=== PATIENT | female | born 1950 | race Caucasian/White ===

== ENCOUNTER → 2017-08-26 | Outpatient (CLI) | payer MEDICARE, OTHER, SELFPAY | PROVIDERS: PCP Family Medicine; Visit Provider Family Medicine | DX: Z13.820 Encounter for screening for osteoporosis (principal); Z78.0 Asymptomatic menopausal state; Z12.31 Encounter for screening mammogram for malignant neoplasm of breast | CPT/HCPCS: 77067; 77080; G0202 ==

== ENCOUNTER → 2017-11-19 13:18 | Outpatient (POV) | payer MEDICARE, OTHER, SELFPAY | DX: Z00.00 Encounter for general adult medical examination without abnormal findings (principal) ==

== ENCOUNTER → 2018-09-02 09:04 | Outpatient (CLI) | payer MEDICARE, OTHER, SELFPAY ==
--- NOTE | 2018-09-02 09:12 | MM_ITS ---
MM Dig screening mamm BI w/CAD CAD Screening COMPARISON: Digital mammograms with CAD 08/26/2017 and 03/15/2015 INDICATION: There is a history of breast cancer in patient's maternal aunt and paternal cousin TECHNIQUE: Standard CC and MLO images were obtained. R2 CAD reviewed. FINDINGS: Scattered fiber glandular densities are seen throughout both breasts there are stable tiny nodular densities in the right breast. There are couple of benign-appearing calcifications in each breast. There is no suspicious lesion and no suspicious microcalcifications. IMPRESSION: Fibrofatty parenchyma with no suspicious lesion seen BI-RADS Category: 2 Benign Finding(s) RECOMMENDED FOLLOW-UP: 1YR - 1 YEAR FOLLOW-UP (A letter has been sent to the patient regarding results of the study.)
== END ==
PROVIDERS: PCP Family Medicine; Visit Provider Family Medicine
DX: Z12.31 Encounter for screening mammogram for malignant neoplasm of breast (principal)
CPT/HCPCS: 77067

== ENCOUNTER → 2019-07-21 14:56 | Outpatient (POV) | payer MEDICARE, OTHER, SELFPAY | DX: Z00.00 Encounter for general adult medical examination without abnormal findings (principal) ==

== ENCOUNTER → 2020-02-02 09:26 | Outpatient (CLI) | payer MEDICARE, OTHER, SELFPAY ==
--- NOTE | 2020-02-02 09:38 | MM_ITS ---
PROCEDURE: MM DIG SCREENING MAMM BI W/CAD DIGITAL BREAST TOMOSYNTHESIS INCLUDED Patient Age:69Y CLINICAL INDICATION: SCREENING 69-year-old no new complaints no hormones Family history: Maternal aunt with breast cancer age 50, narrow times paternal cousin COMPARISON: DMDXUAVR DIG MAMM-DX UNIL ADD VIEWS-RT from 11/19/2012 [facility] DIG MAMM-SCREEN GABRIEL from 03/15/2015 DMSB DIG MAMM-SCREEN GABRIEL W/CAD from 08/26/2017 [facility] MM Dig screening mamm BI w/CAD from 09/02/2018 TECHNIQUE: Standard CC and MLO images were obtained. R2 CAD reviewed. Bilateral digital breast tomosynthesis included. FINDINGS: [id number] residual fibroglandular elements bilaterally but no dominant or suspicious new mass. No suspicious calcifications.. Right breast: No new areas of concern. Stable small benign intramammary lymph nodes towards upper-outer quadrant right breast again noted. On CC view the minimal nodularity seen in lateral breast has regressed slightly Left breast. cluster of small dense calcifications has become apparent since 2018 exam and highlighted by CAD.. Nonspecific-and more likely benign but would benefit from spot views to further evaluate.-. Suggest magnification CC and 90 degree spot views. IMPRESSION: Left breast: Small cluster of calcifications, most likely benign but warrants additional magnification spot views Right breast stable. Follow-up 1 year on right BI-RAD Category: 0 Need Additional Imaging Evaluation low T FOLLOW-UP: IMM Immediate Follow-up Recommended Left breast magnification spot views (A letter has been sent to the patient regarding results of the study.) Dictated by: Adams Mendez MD 02/08/2020 15:54 Electronically signed by Adams Mendez MD in [place] 02/08/2020 15:54
== END ==
PROVIDERS: Visit Provider Nurse Practitioner Family
DX: Z12.31 Encounter for screening mammogram for malignant neoplasm of breast (principal)
CPT/HCPCS: 77063; 77067

== ENCOUNTER → 2020-02-07 10:14 | Outpatient (CLI) | payer MEDICARE, OTHER, SELFPAY ==
--- NOTE | 2020-02-07 10:17 | XR_ITS ---
PROCEDURE: XR DEXA AXIAL SKELETON CLINICAL HISTORY: OSTEOPORSIS COMPARISON: No exams were available for comparison FINDINGS: Right femoral neck density is 0.687 grams/centimeters sq with a T-score -1.5. Left femur density is 0.907 grams/centimeters sq with a T-score of -0.3. L1-L4 density is 1.105 grams/centimeters sq with a T-score of 0.5. IMPRESSION: Osteopenia with moderate fracture risk. Treatment advised. Suggest follow-up exam in 2 years Dictated by: Yevgeniy Preciado MD 02/07/2020 10:48 Electronically signed by Yevgeniy Preciado MD in [place] 02/07/2020 10:48
== END ==
PROVIDERS: Visit Provider Nurse Practitioner Family
DX: M81.0 Age-related osteoporosis without current pathological fracture (principal)
CPT/HCPCS: 77080

== ENCOUNTER → 2020-02-14 13:47 | Outpatient (CLI) | payer MEDICARE, OTHER, SELFPAY ==
--- NOTE | 2020-02-14 13:51 | MM_ITS ---
PROCEDURE: MM DIG MAMM DX UNILAT LT CAD Digital Breast Tomosynthesis Included CLINICAL INDICATION: ABN MAMM Follow-up calcifications COMPARISON: DMSB DIG MAMM-SCREEN GABRIEL W/CAD from 08/26/2017 [facility] MM Dig screening mamm BI w/CAD from 09/02/2018 MM DIG SCREENING MAMM BI W/CAD from 02/02/2020 TECHNIQUE: Mag views left breast FINDINGS: There is a cluster of indeterminate calcifications in the medial aspect of the left breast. These have increased in number and are indeterminate. Biopsy is suggested. Stereotactic biopsy recommended IMPRESSION: BI-RAD Category: 4 Suspicious Abnormality - Biopsy Considered FOLLOW-UP: BIO Biopsy Recommended (A letter has been sent to the patient regarding results of the study.) Dictated by: Yevgeniy Preciado MD 02/14/2020 14:45 Electronically signed by Yevgeniy Preciado MD in [place] 02/14/2020 14:45
== END ==
PROVIDERS: PCP Nurse Practitioner Family; Visit Provider Nurse Practitioner Family
DX: R92.8 Other abnormal and inconclusive findings on diagnostic imaging of breast (principal)
CPT/HCPCS: 77061; 77065; G0279

== ENCOUNTER → 2020-03-16 09:30 | Outpatient (CLI) | payer MEDICARE, OTHER, SELFPAY ==
--- NOTE | 2020-03-16 09:37 | MM_ITS ---
PROCEDURE: MM STEREOTACTIC LOC LT CLINICAL INDICATION: Suspicious calcifications left breast, abnormal mammogram TECHNIQUE: Informed consent was obtained. Time-out procedure performed. The patient was placed on the stereotactic table and the abnormality was localized in the most appropriate projection. The breast was prepped in the routine manner, with sterile prep and the overlying skin anesthetized. A 3 to 4 mm skin incision was performed and the 9 gauge sorus vacuum-assisted core biopsy needle was advanced to the region of the calcification. Pre- and post fire images were obtained. After adequate positioning relative to the calcifications was ensured, multiple biopsies were obtained in the region of the calcifications specifically. The core biopsies obtained were sent for specimen mammography. After the calcifications were indeed identified on the specimen mammogram, the procedure was terminated. The patient tolerated the procedure well without complications. Specimen was sent for pathologic analysis . Routine follow-up phone call to patient is to be performed as well. A tiny titanium nonferromagnetic MicroMark was positioned through the mammotome needle into the biopsy site. Pathology: Focal fibroadenomatoid hyperplasia with calcifications. Proliferative breast disease Negative for atypical hyperplasia or malignancy IMPRESSION: 1. Successful stereotactic vacuum-assisted core biopsy of the left breast calcifications. 2. Successful placement of a titanium metal MicroMark. 3. Pathology shows focal fibroadenomatoid hyperplasia with calcifications and pro live for 8 of breast disease. Negative for atypia or malignancy.. 4. No noted complications. SPECIMEN RADIOGRAPH: The mammographically evident calcifications from the prior study are currently evident within the Michelle dish and within the specimens obtained during mammotome procedure. This is considered an adequate specimen and the procedure was terminated. IMPRESSION: Successful removal of described breast calcifications. Left BREAST MAMMOGRAM: Compared to the prior study, the previously noted calcification have been removed. A small MicroMark clip was inserted into the region of the calcifications. There is evidence of soft tissue changes in the region of the biopsy was soft tissue gas and edema. 5. Adequate placement of the MicroMark clip postbiopsy. 6. Postbiopsy changes within the breast. 7. Recommend follow-up mammogram in 6 months per routine post biopsy protocol Dictated by: Yevgeniy Preciado MD 03/27/2020 08:47 Electronically signed by Yevgeniy Preciado MD in [place] 03/27/2020 08:47
== END ==
PROVIDERS: PCP Nurse Practitioner Family; Visit Provider Nurse Practitioner Family
DX: R92.8 Other abnormal and inconclusive findings on diagnostic imaging of breast (principal)
CPT/HCPCS: 19081; 76098; 77065; 88305

== ENCOUNTER → 2020-04-26 13:42 | Outpatient (POV) | payer MEDICARE, OTHER, SELFPAY | DX: Z00.00 Encounter for general adult medical examination without abnormal findings (principal) ==

== ENCOUNTER → 2020-07-26 12:43 | Outpatient (CLI) | payer MEDICARE, OTHER, SELFPAY ==
--- NOTE | 2020-07-26 12:55 | CA_ITS ---
APPROVED REPORT Straightedge Man: Sintia Hayden RVT Laterality: Bilateral Study Quality: Good Indications: Dizziness and Vertigo Risk Factors Hypertension: Hyperlipidemia Diabetes Doppler Spectral Velocity Analysis ECA (R) 117.40/8.60 cm/s dICA (L) 87.40/31.70 cm/s Sarah (L) 81.40/23.10 cm/s dICA (R) 72.80/25.70 cm/s pICA (L) 66.00/18.80 cm/s Sarah (R) 81.40/24.00 cm/s pICA (R) 71.10/20.60 cm/s dCCA (L) 65.10/14.60 cm/s pCCA (L) 72.80/12.90 cm/s dCCA (R) 74.50/17.10 cm/s pCCA (R) 71.60/15.00 cm/s Vert (L) 34.70/10.90 cm/s Vert (R) 45.40/12.00 cm/s ICA/CCA 1.34 ICA/CCA 1.09 Findings Study suggests 20-49% stenosis of the right internal cartoid artery. Study suggests 20-49% stenosis of the left internal cartoid artery. Antegrade flow seen bilateral vertebral arteries. Conclusion Study suggests 20-49% stenosis of the right internal cartoid artery. Study suggests 20-49% stenosis of the left internal cartoid artery. Antegrade flow seen bilateral vertebral arteries. Electronically signed by : Yevgeniy Preciado MD 07/26/2020 15:41:39
== END ==
PROVIDERS: PCP Nurse Practitioner Family; Visit Provider Nurse Practitioner Family
DX: R42 Dizziness and giddiness (principal)
CPT/HCPCS: 93880

== ENCOUNTER 2020-10-28 16:08 | Emergency (ER) | payer MEDICARE, OTHER, SELFPAY ==
[2020-10-28 16:20] VITALS: BP 123/76; PULSE 84; RESP 18; TEMP 36.9; O2SAT 97; BMI 27.9
--- NOTE | 2020-10-28 16:36 | XR_ITS ---
PROCEDURE: XR FOOT LT MIN 3V Referring Doctor: Pat Morse Patient Age:70Y CLINICAL INDICATION: PAIN Left foot pain COMPARISON: No exams were available for comparison TECHNIQUE: Left foot nonweightbearing 3 View AP, Oblique, Lateral FINDINGS: Left foot no acute fracture nor r dislocation. No lytic or blastic change. Adequate mineralization . There are arthritic changes suggested at the 1st 2nd and 3rd tarsal-metatarsal joints but of these arthritic changes most evident at 2nd and 3rd tarsal-metatarsal joint with sclerosis and mild narrowing most evident at these joints. Less pronounced arthritic changes also at the 4th and 5th tarsal-metatarsal joint.. Metatarsals intact. No fractures no periosteal reaction.. Navicular and talus unremarkable. . MTP joints are intact. PIP joints intact. Mild narrowing scant arthritic changes at DIP joint of 2nd toe At calcaneus note nearly 9 mm length fairly moderate volume plantar calcaneal spur. Only minimal spurring at the insertion Achilles tendon measuring 6 mm late IMPRESSION: No acute findings. No acute fracture Arthritic changes at tarsal-metatarsal joints evident. Most evident sclerosis and arthritic changes at 1st 2nd and 3rd tarsal-metatarsal joints. Less evident 4th and 5th. . Moderate 9 mm plantar calcaneal spur Dictated by: Adams Mendez MD 10/28/2020 22:12 Adams Mendez MD in [place] 10/28/2020 22:12
--- NOTE | 2020-10-28 17:03 | HMH.EDUTC ---
[facility] [place] Disposition Clinical Impression: Foot pain Qualifiers: Laterality: left Qualified Code(s): M79.672 - Pain in left foot Disposition: Home, Self-Care Condition on Discharge: Good Instructions: How To Perform RICE (Rest, Ice, Compress, Elevate), DI for Foot Pain Additional Instructions: *weight bearing as tolerated use cane or walker to ambulate *RICE, Rest the extremity, Ice 15-20 minutes 3-4 times daily, Compress- wear the anirudh wrap as discussed as much as possible to help reduce swelling and pain, Elevate the extremity when at rest *Anirudh wrap/post op shoe is for support and help control swelling, use it except in the shower. Be sure that is not to tight but not to loose either *Elevate when resting *Ibuprofen every 6-8 hours as needed for pain an inflammation. if your doctor has told you that you can take it If need something more can take Tylenol in between doses of Ibuprofen to help Immediately follow up with your family doctor for new or worsening of symptoms, or no noticeable improvement over the next 3-5 days You may call back to the [facility] tomorrow for the official reading of your xray Return if needed Make sure to follow up with your Family Doctor if you continue to have fluctuations of your blood pressure and if no improvement for referral to Podiatry if needed Straight to ER if any life threatening symptoms Referrals: Diane Russell APRN [Primary Care Provider] - As needed Sarah Hoffman DPM [Staff Physician] - Time of Disposition: 17:10 Medical Decision Making - Juma Inquiry Pt receiving controlled substance: No Juma was queried for this patient: No Vital Signs: 10/28/20 16:20 10/28/20 17:16 Temperature 98.4 F 98.4 F Temperature Source Oral Pulse Rate 84 Pulse Rate [Right Brachial] 84 Respiratory Rate 18 18 Blood Pressure 123/76 Blood Pressure [Right Arm] 123/76 Blood Pressure Mean [Right Arm] 91 Blood Pressure Source [Right Arm] Automatic Cuff Blood Pressure Position [Right Arm] Sitting 02 Sat by Pulse Oximetry 97 Oxygen Delivery Method Room Air Orders (Tests/Meds): ORDERS Category Date Time Status XR foot LT min 3V Stat Exams 10/28/20 16:36 Taken - Radiology Data #1 Image(s): Foot/Toes Image Reviewed: Yes I reviewed the patient's radiology image heel spur noted no acute fracture will place in anirudh wrap and post op shoe and have patient follow up with Podiatry [facility] [place] HPI - General Stated complaint: BP high,Left foot swollen Time Seen by Provider: 10/28/20 17:03 Mode of Arrival: Ambulatory Source of Information: Patient Limitations: No Limitations Description of Symptoms (Recalled from Triage Doc. by RN): PATIENT C/O SWOLLEN AND TENDER LEFT FOOT SINCE THIS MORNING. NO KNOWN RECENT INJURY. PATIENT ALSO STATES THAT HER BLOOD PRESSURE WAS ELEVATED THIS MORNING, BUT HAS SINCE GONE DOWN HEENT Symptoms (Recalled from RN notes): No Resp Symptoms (Recalled from RN notes): No Skin Symptoms (Recalled from RN notes): No MS Symptoms (Recalled from RN notes): Yes Functional Status (Recalled from RN notes): WNL - History of Present Illness Provider Complaint: Patient states that she noticed this morning that she was having some pain and swelling in her left foot denies known injury States that she has been using ice on it and it has helped with the swelling States that this morning her blood pressure was elevated due to the pain but has since went down to normal - Related Data Allergies Allergy/AdvReac Type Severity Reaction Status Date / Time No Known Allergies Allergy Verified 10/28/20 16:59 - Worker's Comp Is this a Worker's Comp case?: No [facility] History - Hepatitis A Screen Drug use history?: No High risk sexual behaviors?: No History of sexually transmitted infection?: No Currently employed?: No Childcare worker?: No Do you have indoor plumbing?: Yes Do you have electricity?: Yes Attestation statement:: This patient has been screened for Hepatitis A risk fact
[2020-10-28 17:16] VITALS: BP 123/76; PULSE 84; RESP 18; TEMP 36.9; O2SAT 97
== END 2020-10-28 17:20 | disposition home or self-care (01) ==
PROVIDERS: Emergency Provider Nurse Practitioner; PCP Nurse Practitioner Family
DX: M79.672 Pain in left foot (principal); I10 Essential (primary) hypertension; E11.9 Type 2 diabetes mellitus without complications; Z85.850 Personal history of malignant neoplasm of thyroid
CPT/HCPCS: G0463; 73630; 99202

== ENCOUNTER → 2020-12-04 14:52 | Outpatient (CLI) | payer MEDICARE, OTHER, SELFPAY | PROVIDERS: PCP Nurse Practitioner Family; Visit Provider Nurse Practitioner Family | DX: R92.8 Other abnormal and inconclusive findings on diagnostic imaging of breast (principal) ==

== ENCOUNTER → 2020-12-20 14:33 | Outpatient (POV) | payer MEDICARE, OTHER, SELFPAY | DX: Z00.00 Encounter for general adult medical examination without abnormal findings (principal) ==

== ENCOUNTER → 2021-02-01 12:52 | Outpatient (CLI) | payer MEDICARE, OTHER, SELFPAY ==
--- NOTE | 2021-02-01 12:54 | MM_ITS ---
PROCEDURE: MM DIG MAMM BI DX W/CAD Digital Breast Tomosynthesis Included CLINICAL INDICATION: 6 MONTH F/U COMPARISON: MG DMDXUAVR DIG MAMM-DX UNIL ADD VIEWS-RT from 11/19/2012 MG DMSB DIG MAMM-SCREEN GABRIEL W/CAD from 08/26/2017 [facility] MM Dig screening mamm BI w/CAD from 09/02/2018 MG MM DIG SCREENING MAMM BI W/CAD from 02/02/2020 MG MM DIG MAMM DX UNILAT LT CAD from 02/14/2020 MG MM CLIP PLACEMENT LT from 03/16/2020 MG MM SURGICAL SPECIMEN LT from 03/16/2020 MG MM STEREOTACTIC LOC LT from 03/16/2020 MG from 03/22/2020 MG from 03/27/2020 TECHNIQUE: Standard CC and MLO images and 3D Tomosynthesis was obtained. R2 CAD reviewed. FINDINGS: There is average fibroglandular tissue. There are bilateral benign-appearing nodules. Right breast: Asymmetric density was present in the outer aspect of the right breast at the 9 o'clock region. This area did appear to compress out and may represent fibroglandular tissue having a similar appearance on older exam of 09/02/2018 and 08/24/2019. Benign-appearing calcifications are present as well. Left breast: Biopsy clip is present in the posterior 1/3 of left breast. No recurrence calcifications evident at this region. There is some asymmetry in the left retroareolar region similar to previous exams. Benign-appearing calcifications are present. No malignant appearing mass or malignant-appearing microcalcification is apparent. IMPRESSION: Benign findings BI-RAD Category: 2 Benign Finding FOLLOW-UP: 1 YR 1 Year Follow-up (A letter has been sent to the patient regarding results of the study.) Dictated by: Yevgeniy Preciado MD 02/09/2021 10:53 Yevgeniy Preciado MD in [place] 02/09/2021 10:53
== END ==
PROVIDERS: PCP Nurse Practitioner Family; Visit Provider Nurse Practitioner Family
DX: R92.8 Other abnormal and inconclusive findings on diagnostic imaging of breast (principal)
CPT/HCPCS: 77062; 77066; G0279

== ENCOUNTER → 2021-03-28 12:33 | Outpatient (CLI) | payer MEDICARE, OTHER, SELFPAY ==
--- NOTE | 2021-03-28 12:48 | ECG_ITS ---
APPROVED REPORT Exam: Resting ECG HR:64 bpm ECG Measurements Heart Rate 64 AXES [place] 152 P QRSd 76 QRS -4 QT 402 T 31 QTc 414 Conclusion Normal sinus rhythm Late r wave progression Abnormal ECG Electronically signed by : Lucas Peterson, 03/29/2021 14:29:46
== END ==
PROVIDERS: PCP Nurse Practitioner Family; Visit Provider Nurse Practitioner Family
DX: R06.02 Shortness of breath (principal)
CPT/HCPCS: 93005

== ENCOUNTER → 2021-04-11 14:08 | Outpatient (POV) | payer MEDICARE, OTHER, SELFPAY | DX: Z00.00 Encounter for general adult medical examination without abnormal findings (principal) ==

== ENCOUNTER → 2022-03-29 08:10 | Outpatient (CLI) | payer MEDICARE, OTHER, SELFPAY ==
--- NOTE | 2020-03-29 08:32 | MM_ITS ---
PROCEDURE INFORMATION: Exam: MG Bilateral Screening 3D Mammography Exam date and time: 03/29/2022 8:32 AM Age: 72 years old Clinical indication: Screening examination TECHNIQUE: Imaging protocol: Bilateral Screening tomosynthesis and 2D mammography including computer-aided detection (CAD) when performed. COMPARISON: 1. MG MM DIG MAMM BI DX W/CAD 02/01/2021 1:01 PM 2. MG (BREAST, ) 03/27/2020 11:29 AM FINDINGS: MAMMOGRAPHY: Breast composition: There are scattered areas of fibroglandular density. Mass: None. Architectural distortion: None. Calcifications: No suspicious calcifications. Asymmetric density: None. Skin thickening: None. Axillary adenopathy: None. IMPRESSION: No mammographic evidence of malignancy. Annual screening is recommended unless otherwise clinically indicated. ASSESSMENT: BI-RADS Category 1: Negative Y
--- NOTE | 2022-03-29 08:17 | MM_ITS ---
FINAL REPORT TECHNIQUE: Bone mineral density was calculated of the lumbar spine and hip. CLINICAL HISTORY: post menopausal FINDINGS: DEXA BONE DENSITY AXIAL SKELETON Using L1-4, the bone mineral density of the spine is 1.170 g/cm2, corresponding to T-score of 1.1. Using the left hip, the bone mineral density of the femoral neck is 0.909 g/cm2, corresponding to a T-score of -0.3. NOTE: T-score: Standard deviation compared with peak bone mass of young adult mean. *Following the recommendations of the International Society of Bone densitometry, classification of hip BMD is based on the lower of two T-scores; total hip or femoral neck. IMPRESSION: Normal bone mineral density of the lumbar spine and left hip. Reviewed, Interpreted and Dictated by Philippe Solis III, MD Transcribed by Monie Mcgovern Authenticated and [facility]
== END ==
PROVIDERS: PCP Nurse Practitioner Family; Visit Provider Physician Assistant
DX: Z78.0 Asymptomatic menopausal state (principal); Z12.31 Encounter for screening mammogram for malignant neoplasm of breast
CPT/HCPCS: 77063; 77067; 77080

== ENCOUNTER 2022-12-23 21:45 | Emergency (ER) | payer MEDICARE, OTHER, SELFPAY ==
[2022-12-23 21:47] VITALS: BP 143/110; PULSE 73; RESP 16; TEMP 36.5; O2SAT 99; BMI 25.5
--- NOTE | 2022-12-23 22:20 | CT_ITS ---
PROCEDURE INFORMATION: Exam: CT Cervical Spine Without Contrast Exam date and time: 12/23/2022 10:34 PM Age: 72 years old Clinical indication: Injury or trauma; Fall; Additional info: Fall, head laceration TECHNIQUE: Imaging protocol: Computed tomography of the cervical spine without contrast. Radiation optimization: All CT scans at this facility use at least one of these dose optimization techniques: automated exposure control; mA and/or kV adjustment per patient size (includes targeted exams where dose is matched to clinical indication); or iterative reconstruction. REPORTING DATA: Count of CT and Cardiac NM exams in prior 12 months: This patient has received [address] and 0 known cardiac nuclear medicine studies in the 12 months prior to the current study. COMPARISON: US CA CAROTID DUPLEX BI 26/07/2020 13:00 FINDINGS: Bones/joints: Straightening of the curvature of the cervical spine is likely positional. Degenerative changes at C5-C6 produce up to moderate spinal stenosis. Multilevel degenerative changes of the cervical spine producing multiple levels of mild spinal canal stenosis. Lungs: Lung apices are normal. Thyroid: Thyroid is likely surgically absent. Soft tissues: Unremarkable. IMPRESSION: No acute fracture or malalignment of the cervical spine.
--- NOTE | 2022-12-23 22:20 | CT_ITS ---
PROCEDURE INFORMATION: Exam: CT Head Without Contrast Exam date and time: 12/23/2022 10:34 PM Age: 72 years old Clinical indication: Injury or trauma; Fall; Bleeding/hemorrhage and blunt trauma (contusions or hematomas) and laceration; Consciousness not specified; Without residual foreign body; Head, generalized; Additional info: Fall, head laceration TECHNIQUE: Imaging protocol: Computed tomography of the head without contrast. Radiation optimization: All CT scans at this facility use at least one of these dose optimization techniques: automated exposure control; mA and/or kV adjustment per patient size (includes targeted exams where dose is matched to clinical indication); or iterative reconstruction. REPORTING DATA: Count of CT and Cardiac NM exams in prior 12 months: This patient has received [address] and 0 known cardiac nuclear medicine studies in the 12 months prior to the current study. COMPARISON: US CA CAROTID DUPLEX BI 26/07/2020 13:00 FINDINGS: Brain: Moderate chronic brain volume loss and chronic small vessel ischemic changes. Cerebral ventricles: No ventriculomegaly. Paranasal sinuses: Visualized sinuses are unremarkable. No fluid levels. Mastoid air cells: Visualized mastoid air cells are well aerated. Bones/joints: Unremarkable. No acute fracture. Soft tissues: Small laceration overlies the left frontal bone. IMPRESSION: No acute intracranial findings.
[2022-12-23 23:32] VITALS: BP 167/91; PULSE 70; RESP 16; TEMP 36.5; O2SAT 99
--- NOTE | 2022-12-23 23:32 | HMH.EDWNDL ---
Discharge Plan Disposition Patient Disposition: Home, Self-Care Chief Complaint: Wound/Laceration Referrals Follow up/Referrals: Diane Russell APRN [Primary Care Provider] - See instructions Clinical Impressions Clinical Impression: Contusion of head, Laceration Instructions Patient Instructions: DI for Laceration Repair Discharge ED Provider: Campbell (ED),Chavez Arreguin Wound/Laceration HPI General Chief Complaint: Wound/Laceration Stated Complaint: AO 12/23 Laceration on Forehead and hit head Time Seen by Provider: 12/23/22 22:35 Mode of Arrival: Ambulatory Source of Information: Patient, Relative and Medical Record Limitations: No Limitations Description of Symptoms (Recalled from ER Triage Doc. by RN): pt states was stepping on a box and fell hit a closet door. pt has laceration above lt eye History of Present Illness HPI narrative: slipped and fell with lac to forehead Onset (ago): hour(s) Location: face Place: home Patient tetanus UTD: Yes Context: accidental Associated symptoms: none Related Data Allergies Allergy/AdvReac Type Severity Reaction Status Date / Time No Known Allergies Allergy Verified 10/28/20 16:59 [facility] Disclaimer: The information contained in this section may have been updated after the patient was seen, as this information can be updated by other users. Social History Smoking Status: Never smoker alcohol intake: never current occupational status: other Travel in the last 8 weeks: None ROS Obtained: Yes All systems reviewed & no additional complaints except as documented Physical Exam General General appearance: alert Head Head exam: normocephalic Eye Eye exam: Present PERRL and EOMI ENT ENT exam: Present mucous membranes moist Neck Neck exam: Present trachea midline Respiratory Respiratory exam: Absent respiratory distress Cardiovascular Cardiovascular exam: Present regular rate Abdominal Exam Abdominal exam: Present soft Extremities Exam Extremities exam: Present full ROM Neurological Exam Neurological exam: Present alert, oriented X3, CN II-XII intact and other (gcs=15); Absent motor sensory deficit Skin Skin exam: Present other (1.5 cm facial lac ) Medical Decision Making Medical Records Medical records reviewed: Yes I reviewed the patient's medical records. Juma Inquiry Pt receiving controlled substance: No Vital Signs: 12/23/22 21:47 12/23/22 23:32 Temperature 97.7 F 97.7 F Temperature Source Oral Oral Pulse Rate 70 Pulse Rate [Right] 73 Respiratory Rate 16 16 Blood Pressure 167/91 H Blood Pressure [Right Arm] 143/110 H Blood Pressure Mean [Right Arm] 121 02 Sat by Pulse Oximetry 99 Lab Data Lab results reviewed: Yes I reviewed the patient's lab results. Orders (Tests/Meds): ORDERS Category Date Time Status CT cervical spine wo con Stat Cat Scan 12/23/22 22:[address] head/brain wo con Stat Cat Scan 12/23/22 22:[address] Scan: Head and C-Spine Time Received: 23:[address] Reviewed: Yes I have viewed the radiologist's interpretation Preliminary Findings: No Fracture Seen US Data ED US Reviewed: Yes I have viewed radiologist's interpretation Medical Decision Narrative: head trauma w/o abn ct and has 1.5 cm lac and sutures out 6 days Procedures Laceration Laceration 1: Site: face Side (If applicable): right Size (cm): 1.5 Description: linear Depth: involves subcutaneous layer Local Anesthetic: lidocaine 1% Amount of anesthesia used (mL): 3.5 Pre-repair: wound explored and deep structures intact Skin layer closed with: nylon and Dermabond Size (cm): 5-0 Number of sutures: 5 Technique: simple, interrupted Critical Care Time Critical Care Time Critical Care Time: No Attestation: On 12/23/22, the high probability of a clinically significant, sudden or life threatening deterioration of the following system(s)
== END 2022-12-23 23:47 | disposition home or self-care (01) ==
PROVIDERS: Emergency Provider Emergency Medicine; PCP Nurse Practitioner Family
DX: S01.81XA Laceration without foreign body of other part of head, initial encounter (principal); W17.89XA Other fall from one level to another, initial encounter
CPT/HCPCS: 12051; 70450; 72125; 99285

== ENCOUNTER → 2023-01-21 11:02 | Outpatient (CLI) | payer MEDICARE, OTHER, SELFPAY ==
--- NOTE | 2023-01-21 11:16 | ECG_ITS ---
APPROVED REPORT Exam: Resting ECG HR:60 bpm ECG Measurements Heart Rate 60 AXES SD 172 P -12 QRSd 89 QRS -7 QT 426 T 12 QTc 426 Conclusion SINUS RHYTHM LOW QRS VOLTAGE IN PRECORDIAL LEADS [QRS DEFLECTION < 1.0 mV IN CHEST LEADS] MODERATE VOLTAGE CRITERIA FOR LVH, CONSIDER NORMAL VARIANT [MEETS CRITERIA IN ONE OF: R(aVL), S(V1), R(V5), R(V5/V6)+S(V1)] BORDERLINE ECG UNCONFIRMED REPORT Electronically signed by : Lucas Peterson MD 01/21/2023 20:08:46
== END ==
PROVIDERS: PCP Family Medicine; Visit Provider Family Medicine
DX: Z01.818 Encounter for other preprocedural examination (principal)
CPT/HCPCS: 93005

== ENCOUNTER 2023-04-16 08:03 | Day surgery (SDC) | payer MEDICARE, OTHER, SELFPAY ==
[2023-04-03 10:27] VITALS: BMI 25.7
[2023-04-16] VITALS (7 sets, daily range): BP systolic 70–140; BP diastolic 39–82; PULSE 69–90; RESP 12–16; TEMP 36.6–36.7; O2SAT 94–98
[2023-04-16 08:43] LABS: POC Glucose,Bedside 132 (70-110)
--- NOTE | 2023-04-16 08:52 | P.PNANES_ITS ---
[facility] Disclaimer: The information contained in this section may have been updated after the patient was seen, as this information can be updated by other users. Medical History Cataract Diabetes mellitus, type 2 History of cataract Hyperlipidemia Hypertension Hypothyroid Thyroid cancer Surgical History History of hysterectomy Hx of thyroidectomy Family History Other Family history of cancer Family history of diabetes mellitus type II Family history of hypertension Family history of stroke Social History Smoking Status: Never smoker alcohol intake: never substance use type: denies use current occupational status: retired Travel in the last 8 weeks: None household members: family housing: house lives independently: Yes marital status: education level: college service: No caffeine: Yes special ubaldo needs: No do you feel safe at home: Yes victim of physical abuse: No victim of emotional abuse: No victim of sexual abuse: No would you like helpful sources: No [facility] Anesthesia Checklist Structural Data Admitted From: Home Planned Operative Procedure/s: colonoscopy Consent for Planned Operative Procedure(s) Verified: Yes Verified Documents: Surgical Consent and History and Physical NPO Status Verified Time NPO: 00:00 Additional verifications Anesthesia Reactions: No Airway Assessment Mallampati Score:: Class II C-Spine Mobility Assessed: Yes TMJ Mobility Assessed: Yes Dentition: Good Dentition Neurological Assessment Level of Consciousness: Awake and Alert Anesthesia Plan Anesthesia Risk discussed: Yes Anesthesia Plan: Verified ASA Class: II Anesthesia Type: MAC
--- NOTE | 2023-04-16 09:19 | HMH.SCOPE ---
Procedure: Date: 04/16/23 Patient Date of :: 1950 Procedure Performed:: Colonoscopy Indications:: The patient is a 73 year old who presents for colonoscopy due to having a positive cologuard test Performing Provider:: Shun Ahumada MD Referring Provider:: Luisito Cota MD Sedation:: See RN records Procedure:: After placing the patient in the left lateral decubitus position, the colonoscopy was gently inserted into the rectum and under direct visualization advanced to the cecum which was identified by transillumination in the right lower quadrant, identification of the ileocecal valve, appendiceal orifice, and cecal strap. Color, texture, mucosa, and anatomy of the colon were carefully examined with the scope. Findings:: Anal canal: normal Rectum: Pedunculated polyp 8 mm in size. Removed with hot snare polypectomy Sigmoid colon: normal without polyps or inflammatory changes Descending colon: Sessile polyp less than 5 mm in size. Removed with cold forceps Splenic flexure: normal Transverse colon: normal without polyps or inflammatory changes Hepatic flexure: normal Ascending colon: normal without polyps or inflammatory changes Cecum: Sessile polyp 7 mm in size. Removed with cold snare polypectomy Terminal ileum: not visualized Impression: Polyp of cecum Polyp of descending colon Polyp of rectum Recommendations:: Await pathology results Repeat colonoscopy in 3 years Complications:: none Estimated blood obtained (mL): 0 Colonoscopy Component Colonoscopy Component Was a colonoscopy performed during today's procedure?: Yes Recommended follow up colonoscopy of at least 10 years?: Yes
== END 2023-04-16 10:25 | disposition home or self-care (01) ==
PROVIDERS: PCP Family Medicine; Visit Provider Internal Medicine
PROC: 0DJD8ZZ Inspection of Lower Intestinal Tract, Via Natural or Artificial Opening Endoscopic (ICD-10-PCS; CPT 45378; principal; 2023-04-16 09:00)
DX: R19.5 Other fecal abnormalities (principal); D12.8 Benign neoplasm of rectum; D12.0 Benign neoplasm of cecum; E11.9 Type 2 diabetes mellitus without complications
CPT/HCPCS: 45380; 45385; 82962; 88305

== ENCOUNTER 2023-12-01 00:35 | Emergency (ER) | payer MEDICARE, OTHER, SELFPAY ==
[2023-12-01] VITALS (7 sets, daily range): BP systolic 163–185; BP diastolic 72–93; PULSE 70–80; RESP 18; TEMP 36.3–36.4; O2SAT 93–98; BMI 28.3
--- NOTE | 2023-12-01 | ECG_ITS ---
APPROVED REPORT Exam: Resting ECG HR:74 bpm ECG Measurements Heart Rate 74 AXES MI 181 P 64 QRSd 84 QRS 22 QT 378 T 49 QTc 406 Conclusion SINUS RHYTHM NORMAL ECG Electronically signed by : DALE BAPTISTE, 12/01/2023 03:07:20
--- NOTE | 2023-12-01 01:08 | CT_ITS ---
PROCEDURE INFORMATION: Exam: CTA Head With Contrast, Arteriography Exam date and time: 12/01/2023 1:52 AM Age: 73 years old Clinical indication: Stroke-like symptoms; Altered mental status/memory loss; Additional info: AMS, comprehension problem TECHNIQUE: Imaging protocol: Computed tomographic angiography of the head with contrast. Exam focused on the arteries. 3D rendering (Not supervised by radiologist): MIP and/or 3D reconstructed images were created by the technologist. Radiation optimization: All CT scans at this facility use at least one of these dose optimization techniques: automated exposure control; mA and/or kV adjustment per patient size (includes targeted exams where dose is matched to clinical indication); or iterative reconstruction. Contrast material: ISOVUE 370; Contrast volume: 100 ml; Contrast route: INTRAVENOUS (IV); COMPARISON: CT HEAD/BRAIN WO CON 12/23/2022 10:34 PM FINDINGS: ANTERIOR CIRCULATION: Right internal carotid artery: [id number] atherosclerotic changes of the right cavernous carotid artery. Right middle cerebral artery: No occlusion or significant stenosis. No aneurysm. Right anterior cerebral artery: No occlusion or significant stenosis. No aneurysm. Left internal carotid artery: [id number] atherosclerotic changes of the left cavernous carotid artery. Left middle cerebral artery: No occlusion or significant stenosis. No aneurysm. Left anterior cerebral artery: No occlusion or significant stenosis. No aneurysm. POSTERIOR CIRCULATION: Right vertebral artery: Mild atherosclerotic changes of the right vertebral artery. Left vertebral artery: Mild atherosclerotic changes of the left vertebral artery. Basilar artery: No occlusion or significant stenosis. No aneurysm. Right posterior cerebral artery: No occlusion or significant stenosis. No aneurysm. Left posterior cerebral artery: No occlusion or significant stenosis. No aneurysm. Brain: Left occipital lobe moderate-sized area of low attenuation. Cerebral ventricles: No ventriculomegaly. Bones/joints: Unremarkable. No acute fracture. Soft tissues: Unremarkable. IMPRESSION: 1. No acute findings. Atherosclerotic disease without significant stenosis. 2. Left [facility] distribution acute infarct. Please see the earlier head CT. PROCEDURE INFORMATION: Exam: CTA Neck With Contrast Exam date and time: 12/01/2023 1:52 AM Age: 73 years old Clinical indication: Stroke-like symptoms; Altered mental status/memory loss; Additional info: AMS, comprehension problem TECHNIQUE: Imaging protocol: Computed tomographic angiography of the neck with contrast. Exam focused on the cervical segments of the vasculature. 3D rendering (Not supervised by radiologist): MIP and/or 3D reconstructed images were created by the technologist. COMPARISON: CT CERVICAL SPINE WO CON 12/23/2022 10:34 PM FINDINGS: Right common carotid artery: Mild atherosclerotic changes of the right carotid bulb. Right internal carotid artery: Minimal atherosclerosis of the right ICA. Right external carotid artery: No occlusion or stenosis of the origin. Left common carotid artery: Mild atherosclerotic changes of the left carotid bulb. Left internal carotid artery: Minimal atherosclerosis of the left ICA. Left external carotid artery: No occlusion or stenosis of the origin. Right vertebral artery: No stenosis. No dissection or occlusion. Left vertebral artery: No stenosis. No dissection or occlusion. Aorta: Mild atherosclerosis of the aortic arch. Soft tissues: Normal. No significant soft tissue swelling. Bones/joints: Degenerative changes of the spine. IMPRESSION: No acute findings. Atherosclerotic disease without significant stenosis. REFERENCES: NASCET CRITERIA. The degree of stenosis in the cervical segment of the internal carotid artery is based on NASCET criteria. Normal is no stenosis. Mild is less than 50% stenosis. Moderate is 50-69% stenosis. Severe is 70% to 99% stenosis. Total occlusion is no detectable patent lumen.
--- NOTE | 2023-12-01 01:08 | CT_ITS ---
PROCEDURE INFORMATION: Exam: CT Head Without Contrast Exam date and time: 12/01/2023 1:56 AM Age: 73 years old Clinical indication: Stroke-like symptoms; Altered mental status/memory loss; Additional info: AMS, comprehensive difficulty TECHNIQUE: Imaging protocol: Computed tomography of the head without contrast. Radiation optimization: All CT scans at this facility use at least one of these dose optimization techniques: automated exposure control; mA and/or kV adjustment per patient size (includes targeted exams where dose is matched to clinical indication); or iterative reconstruction. Other technique: STROKE PROTOCOL was implemented. COMPARISON: CT ANGIO HEAD 12/01/2023 1:52 AM FINDINGS: Brain: Moderate to severe brain volume loss with severe chronic ischemic changes. Old small infarct of the posterior to mid left frontal subcortical white matter. There is a large area of low attenuation involving the left occipital lobe and a small portion of the posteromedial left temporal lobe. No acute hemorrhage. No obvious mass. No mass effect or shift. Cerebral ventricles: No ventriculomegaly. Paranasal sinuses: Visualized sinuses are unremarkable. No fluid levels. Mastoid air cells: Visualized mastoid air cells are well aerated. Bones/joints: Unremarkable. No acute fracture. Soft tissues: Unremarkable. IMPRESSION: Findings consistent with a [id number]-[id number] sized left THEAT[employer] PERFORMER distribution acute to subacute infarct. ASSESSMENT: ASPECTS ([facility] Stroke Program Early CT Score) is 10.
--- NOTE | 2023-12-01 01:08 | ED_ITS ---
Discharge Plan Disposition Patient Disposition: Xfer Short-Term Hosp Condition: Fair Chief Complaint: Altered Mental Status Prescriptions Prescriptions: No Action metformin 500 mg tablet 1,000 mg PO BID Rx Instructions: 1000 am 1000pm atenolol-chlorthalidone 50-25 mg tablet 1 tab PO DAILY levothyroxine 100 mcg tablet 75 mcg PO DAILY Patient Comments: TAKE 1 TABLET BY MOUTH ONCE DAILY lisinopril 10 mg tablet 10 mg PO DAILY glimepiride 4 mg tablet 4 mg PO DAILY rosuvastatin 5 mg tablet 5 mg PO HS Patient Comments: TAKE 1 TABLET BY MOUTH ONCE DAILY fenofibrate 160 mg tablet 160 mg PO DAILY aspirin 81 mg Tablet,Delayed Release (Dr/Ec) 81 mg PO DAILY Referrals Follow up/Referrals: Peewee Fleming MD [Primary Care Provider] - See instructions Clinical Impressions Clinical Impression: Occipital stroke Stand Alone Forms Stand Alone Forms: Transfer Record - ED Instructions Patient Instructions: DI for Altered Mental Status Discharge ED Provider: Katlyn Koroma General Adult HPI General Chief complaint: Altered Mental Status Stated complaint: AMS, weakness Time Seen by Provider: 12/01/23 00:55 Mode of Arrival: Wheelchair Source of Information: Patient and Relative Limitations: Altered Mental Status Description of Symptoms (Recalled from ER Triage Doc. by RN): pt presented to the ED with son for AMS. son states that he spoke with her at 2200 and said she stated she felt like she couldn't do anything and that she didn't know who the president was. Pt is a diabetic; FSBS 207. Patient can state name and that she is at [facility] ED but when asked the year she said 1989 something and when asked who the president was she stated Obama. Pupils round and reactive at 2.5mm. Pt does have some decreased sensation to right arm. Son states pt had TIA in 2020. History of Present Illness HPI narrative: 73-year-old female presents to the ER for concerns of altered mental status. Son is also at bedside and helps provide history. He states that he last talked to his mother not this evening, but the evening before around 2200. At that time she was speaking normally and seemed at baseline. He reports that patient called him late this evening stating she felt confused and could not do anything . He found her at home and gave her juice which did not seem to help her symptoms. Son reports that her depth perception seemed off. Patient reports she woke up with those symptoms this morning (morning of 11/30/23). Last known normal 2200 the previous night. Patient reports she feels confused and generally weak. Son states that patient did have a stooling accident in the restroom at home which he cleaned up when he arrived to her house. Patient is a diabetic and takes Sitagliptin and glimepiride as well as metformin. Patient does have a history of prior TIA. Patient knows who she is, where she is, does not know the year or the president. She denies any injuries or falls. She denies dysuria or hematuria, no fevers or vomiting. She denies pain anywhere in her body. Son reports he does not believe she ate much during the day today but does not know for sure because patient lives alone. Related Data Home Medications Medication Instructions Recorded Confirmed aspirin 81 mg tablet,delayed 81 mg PO DAILY prevention 03/17/23 04/16/23 release atenolol 50 mg-chlorthalidone 25 1 tab PO DAILY htn 03/17/23 04/16/23 mg tablet fenofibrate 160 mg tablet 160 mg PO DAILY triglycerides 03/17/23 04/16/23 glimepiride 4 mg tablet 4 mg PO DAILY Diabetes 03/17/23 04/16/23 levothyroxine 100 mcg tablet 75 mcg PO DAILY thyroidectomy 03/17/23 04/16/23 lisinopril 10 mg tablet 10 mg PO DAILY htn 03/17/23 04/16/23 metformin 500 mg tablet 1,000 mg PO BID Diabetes 03/17/23 04/16/23 rosuvastatin 5 mg tablet 5 mg PO HS Cholesterol 03/17/23 04/16/23 Allergies Allergy/AdvReac Type Severity Reaction Status Date / Time No Known Allergies Allergy Verified 04/16/23 08:20 [facility] Disclaimer: The information contained in this section may have been updated after the patient was seen, as this information can be updated by other users. Medical History (Updated 12/01/23 @ 02:39 by Katlyn Koroma MD) Cataract History of cataract Hyperlipidemia Hypertension Thyroid cancer Hypothyroid Diabetes mellitus, type 2 Surgical History Hx of thyroidectomy History of hysterectomy Family History Other Family history of cancer Family history of diabetes mellitus type II Family history of hypertension Family history of stroke Social History Smoking Status: Never smoker alcohol intake: never substance use type: denies use current occupational status: retired Travel in the last 8 weeks: None household members: family housing: house lives independently: Yes marital status: education level: college service: No caffeine: Yes special ubaldo needs: No do you feel safe at home: Yes victim of physical abuse: No victim of emotional abuse: No victim of sexual abuse: No would you like helpful sources: No ROS Obtained: Yes All systems reviewed & no additional complaints except as documented Constitutional Constitutional: Denies chills, Denies fever(s), Denies headache(s) and Reports weakness (Generalized) Eyes Eyes: Denies change in vision ENT Ears, Nose, Mouth, and Throat: Denies dizziness, Denies headache(s), Denies nasal congestion and Denies sore throat Cardiovascular Cardiovascular: Denies chest pain, Denies dyspnea and Denies leg edema Respiratory Respiratory: Denies cough and Denies dyspnea Gastrointestinal Gastrointestingal: Denies constipation, diarrhea, nausea or vomiting Genitourinary Female Genitourinary: Denies dysuria Musculoskeletal Musculoskeletal: Denies arthralgias, Denies myalgias, Denies numbness and Denies tingling Integumentary/Breasts Skin/Breast: Denies change in pigmentation Neurologic Neurologic: Reports confusion, Denies dizziness, Denies headache(s), Denies numbness, Denies tingling and Reports weakness (Generalized) Physical Exam General General appearance: alert and in no apparent distress Head Head exam: atraumatic and normocephalic Eye Eye exam: Present PERRL (3 mm, briskly reactive), EOMI and other (Right homonymous hemianopsia present, right eye vision only to light/shape, left eye 20/40, both eyes 20/50); Absent nystagmus ENT ENT exam: Present mucous membranes moist Neck Neck exam: Present normal inspection and full ROM Chest Chest inspection: Present symmetric chest wall rise Respiratory Respiratory exam: Present normal lung sounds bilaterally; Absent respiratory distress, wheezes or stridor Cardiovascular Cardiovascular exam: Present regular rate and normal rhythm Abdominal Exam Abdominal exam: Present soft; Absent distention or tenderness Extremities Exam Extremities exam: Present full ROM; Absent tenderness or edema Neurological Exam Neurological exam: Present alert, CN II-XII intact and other (No limb drift, patient reports may be slightly decreased sensation in the right lower extremity but increased sensation in the right upper extremity compared to the left, no ataxia in the upper or lower extremities, patient does have difficulty identifying common objects, no dysarthria); Absent oriented X3 (Oriented to self and location, disoriented to year and president) or motor sensory deficit Psychiatric Psychiatric exam: Present normal affect and normal mood Skin Skin exam: Present warm and dry Medical Decision Making Juma Inquiry Pt receiving controlled substance: No Vital Signs: 12/01/23 00:37 Temperature 97.4 F L Temperature Source Oral Pulse Rate [Right Brachial] 74 Respiratory Rate 18 Blood Pressure [Right Arm] 163/92 H Blood Pressure Mean [Right Arm] 115 Blood Pressure Source [Right Arm] Automatic Cuff Blood Pressure Position [Right Arm] Sitting 02 Sat by Pulse Oximetry 96 Oxygen Delivery Method Room Air Lab Data Lab Results 12/01/23 00:50: WBC 11.4 H, RBC 5.54 H, Hgb 15.3, Hct 47.8 H, MCV 86.4, MCH 27.7, MCHC 32.0, RDW 15.6, Plt Count 496 H, MPV 7.9, Neut % (Auto) 64.2, Lymph % (Auto) 27.5, [place] % (Auto) 4.0, Eos % (Auto) 2.8, Baso % (Auto) 1.5, Neut # (Auto) 7.3, Lymph # (Auto) 3.1, [place] # (Auto) 0.5, Eos # (Auto) 0.3, Baso # (Auto) 0.2, PT 10.6, INR 0.98, Sodium 136, Potassium 3.7, Chloride 101, Carbon Dioxide 27, Anion Gap 11.7, BUN 42 H, Creatinine 1.70 H, Estimated Creat Clear 31, Estimated GFR 29 L, Est GFR ( Amer) 36 L, Glucose 233 H, Calcium 10.2, Total Bilirubin 0.3, AST 39 H, ALT 35, Alkaline Phosphatase 71, Total Protein 7.5, Albumin 4.7, Globulin 2.8, Albumin/Globulin Ratio 1.7, Plasma/Serum Alcohol < 10, Acetone Level None detected 12/01/23 01:10: VBG pH 7.32, VBG pCO2 47.8, VBG pO2 38.0, VBG HCO3 24.2, VBG Total CO2 25.7, VBG O2 Saturation 67.5, VBG Base Excess -1.8, VBG Lactic Acid 2.6 H 12/01/23 01:20: Urine Color Yellow, Urine Appearance Clear, Urine pH 6.0, Ur Specific [place] 1.010, Urine Protein Negative, Urine Glucose (UA) Negative, Urine Ketones Negative, Urine Blood Negative, Urine Nitrate Negative, Urine Bilirubin Negative, Urine Urobilinogen 0.2, Ur Leukocyte Esterase 1+ A, Urine RBC None, Urine WBC 5-10, Ur Squamous Epith Cells Occasional, Urine Bacteria Trace, Urine Opiates Screen Negative, Urine Methadone Screen Negative, Ur Barbituates Screen Negative, Ur Phencyclidine Scrn Negative, Ur Amphetamines Screen Negative, U Benzodiazepines Scrn Negative, Urine Cocaine Screen Negative, U Marijuana (THC) Screen Negative 12/01/23 00:50 12/01/23 00:50 Orders (Tests/Meds): ED MEDICATIONS Generic Name Dose Route Start Last Admin Trade Name Freq PRN Reason Stop Dose Admin Lactated Ringer's 1,000 mls @ 999 mls/hr 12/01/23 01:08 12/01/23 01:16 Lactated Ringer's 1000 Ml Bag IV 12/01/23 02:08 999 mls/hr .[id number] ONE Administration Discontinued Medications Generic Name Dose Route Start Last Admin Trade Name Freq PRN Reason Stop Dose Admin Acetaminophen 1,000 mg 12/01/23 01:38 12/01/23 01:39 Acetaminophen 1,000mg/100ml Vial IV 12/01/23 01:39 1,000 mg ONCE ONE Administration ORDERS Category Date Time Status CT angio head Stat Cat Scan 12/01/23 01:[address] angio neck Stat Cat Scan 12/01/23 01:[address] head/brain wo con Stat Cat Scan 12/01/23 01:08 Ordered CXR --portable [XR chest portable] Stat Exams 12/01/23 01:08 Ordered Acetone, Serum (Rapid) Stat Lab 12/01/23 00:50 Completed CBC w/Auto Diff [Complete Blood Count Auto Diff] Stat Lab 12/01/23 00:50 Completed CMP [Comprehensive Metabolic Panel] Stat Lab 12/01/23 00:50 Completed Ethanol [Ethyl Alcohol] Stat Lab 12/01/23 00:50 Completed PT INR [Prothrombin Time INR] Stat Lab 12/01/23 00:50 Completed UA [Urinalysis and Microscopic] Stat Lab 12/01/23 01:20 Completed UDS [Drug Screen,Urine] Stat Lab 12/01/23 01:20 Completed Urine Culture Stat Micro 12/01/23 01:20 Received VBG [Venous Blood Gas] Stat RT 12/01/23 01:10 Completed Medical Decision Narrative: In summary, this 73year old female with a history of diabetes, TIA both of which are comorbidities of current condition and increase her overall morbidity presents to the emergency department today with altered mental status, diffuse weakness. On initial evaluation patient is hemodynamically stable, afebrile, she does not have any localizing deficits on exam but does have difficulty identifying objects, GCS 14, last known normal over 24 hours prior to arrival, she will not be stroke alerted. NIH 4, 1 point for confusion, 1 point for partial hemianopsia, and I believe due to vision changes, patient has 1 point for aphasia and dysarthria due to difficulty reading and interpreting images on the NIH scale. Remainder of exam benign. Differential diagnosis includes but is not limited to intracranial bleed, mass, or midline shift, ischemic stroke, I considered trauma but did not identify any findings of this on exam,hypo or hyperglycemia, DKA, HHS, urinary tract infection, metabolic abnormality including kidney dysfunction, liver dysfunction, or electrolyte abnormality, pneumonia, hypercarbia. Based on these concerns, I ordered broad workup including CT imaging of the head and neck including angiography, chest x-ray, EKG was performed but I do not have suspicion for ACS as patient does not have any chest pain, shortness of breath, or cardiac type complaints at this time, urine studies, basic labs were also ordered. Patient does have the possibility of euglycemic DKA since she does take a sulfonylurea. ECG personally interpreted demonstrates normal sinus rhythm, rate 74, normal axis, normal intervals, no STEMI. Patient received IV fluids for treatment. Labs personally reviewed demonstrate mild leukocytosis, no anemia, PT/INR normal, VBG with normal pH of 7.32, lactate is elevated at 2.6, patient is receiving IV fluids and this lab will be rechecked, sodium, potassium, chloride, calcium normal, BUN and creatinine are elevated at 42, 1.70, respectively. Patient is receiving fluids. No previous labs for comparison are available. Trace elevation in AST, nonspecific and nonactionable, other liver function tests normal. Serum alcohol negative. UDS negative, UA with few WBCs but no nitrites, patient is asymptomatic so will not be treated for UTI. Prior to going to CT scan, patient complained of headache. No changes in neurologic symptoms. IV acetaminophen administered. I discussed patient's decreased kidney function with son and discussed the possibility of contrast- induced nephropathy given low GFR. I did recommend contrast exams to best evaluate any possible intracranial abnormalities including possibility of stroke. After discussion of risks and benefits, son consented to administration of IV contrast. XR personally interpreted demonstrates no lobar infiltrate. See radiology read for final interpretation. CT imaging personally interpreted demonstrate left occipital infarct. See radiology reads for final interpretations. After appreciating this, I called [facility] and asked them to expedite all image reads. I was called back by the radiologist to agreed with my interpretation demonstrating left occipital infarct acute versus subacute, given patient's clinical presentation believed to be subacute. We immediately called [facility] for consult for transfer. I had an interactive discussion with Dr. Leyva in the transfer center. After discussing patient's vision changes and imaging results, he accepted the patient for ED to ED transfer to [facility]. Patient and family are amenable to this plan. Patient is appropriate for ALS transport and was sent for transfer in stable condition. Critical Care Critical Care Time Critical Care Time: Yes Attestation: On 12/01/23, the high probability of a clinically significant, sudden or life threatening deterioration of the following system(s) (neurologic) required my full and direct attention, intervention and personal management. The time I documented below is in addition to time spent performing reported procedures but includes the following listed in this critical care notation. Total Time Total Critical Care Time: 35
[2023-12-01] MEDS: LACTATED RINGERS 1000ML 1,000 ML 999 ML IV (01:16)
[2023-12-01 01:18] LABS: Basophils # 0.2 K/mm3 (0-0.2); Basophils % 1.5 % (0.1-2.0); Eosinophils # 0.3 K/mm3 (0.0-0.4); Eosinophils % 2.8 % (0.1-12.0); Hematocrit 47.8 % (37.0-47.0); Hemoglobin 15.3 g/dL (12.2-16.2); Lymphocytes # 3.1 K/mm3 (0.7-4.5); Lymphocytes % 27.5 % (10-50); Mean Corpuscular Hemoglobin 27.7 pg (27.0-31.2); Mean Corpuscular Volume 86.4 fl (81-99); Mean Platelet Volume 7.9 fl (7.4-10.4); Monocytes # 0.5 K/mm3 (0.1-1.0); Neutrophils # 7.3 K/mm3 (1.8-7.8); Neutrophils % 64.2 % (37.0-80.0); Platelet Count 496 K/mm3 (142-424); Red Blood Count 5.54 M/mm3 (4.20-5.40); Red Cell Distribution Width 15.6 % (11.5-17.5); White Blood Count 11.4 K/mm3 (4.8-10.8)
[2023-12-01 01:19] LABS: Chloride 101 mmol/L (98-107)
[2023-12-01 01:20] LABS: Potassium 3.7 mmoL/L (3.5-5.1); Sodium 136 mmol/L (136-145)
[2023-12-01 01:22] LABS: Alanine Aminotransferase 35 U/L (12-78); Aspartate Amino Transferase 39 U/L (14-36); Blood Urea Nitrogen 42 mg/dl (7-17); Creatinine Clearance Estimated 31 mL/min (50-200); Estimated Glomerular Filt Rate 29 ml/min (>60); GFR (African American) 36 ML/MIN (>60); INR 0.98 (0.9-1.1); Prothrombin Time 10.6 seconds (10.1-12.5)
[2023-12-01 01:22] LABS: VBG Base Excess -1.8 mmol/L (-2.4-2.3); VBG HCO3 24.2 mmol/L (23-30); VBG Oxygen Saturation 67.5 % (50-70); VBG PCO2 47.8 mmol/L (35-51); VBG PH 7.32 mmol/L (7.31-7.41); VBG Total CO2 25.7 mmol/L (23-27)
[2023-12-01 01:23] LABS: Albumin Level 4.7 g/dl (3.5-5.0); Albumin/Globulin Ratio 1.7 (1.1-1.8); Alkaline Phosphatase 71 U/L (38-126); Anion Gap 11.7 mEq/L (5-15); Bilirubin,Total 0.3 mg/dl (0.2-1.3); Calcium 10.2 mg/dl (8.4-10.2); Carbon Dioxide 27 mmol/L (22.0-30.0); Globulin 2.8 g/dL (1.3-3.2); Glucose 233 mg/dl (74-100); Total Protein,Serum 7.5 g/dl (6.3-8.2)
[2023-12-01 01:23] LABS: Lactate Venous 2.6 mmol/L (0.4-2.0)
[2023-12-01 01:25] LABS: Ethyl Alcohol < 10 mg/dl (0-10)
[2023-12-01 01:30] LABS: Appearance,Urine CLEAR (Clear); Bilirubin,Urine Negative (Negative); Blood, Urine Negative (Negative); Color,Urine YELLOW (Yellow); Glucose,Urine (UA) Negative (Negative); Ketones,Urine Negative (Negative); Leukocyte Esterase,Urine 1+ (Negative); Microscopic, Urine URINE MICROSCOPIC (MICROSCOPIC); Nitrate,Urine Negative (Negative); Protein,Urine Negative (Negative); Urobilinogen,Urine 0.2 EU/dl (0.2)
[2023-12-01] MEDS: ACETAMINOPHEN 1,000MG/100ML VIAL 1000 MG IV (01:39)
[2023-12-01 01:40] LABS: Acetone, Serum (Rapid) None Detected (None Detect)
[2023-12-01 01:43] LABS: Barbiturates Screen,Urine Negative ng/ml (<200)
[2023-12-01 01:44] LABS: Benzodiazepines Screen,Urine Negative ng/ml (<200)
[2023-12-01 01:45] LABS: Bacteria,Urine Trace /lpf; Cannabinoid Screen,Urine Negative ng/ml (<50); Squamous Epithelial Cell,Urine Occasional #/hpf (0-5)
[2023-12-01 01:46] LABS: Cocaine Screen,Urine Negative ng/ml (<300); Methadone Screen,Urine Negative ng/ml (<300)
[2023-12-01 01:47] LABS: Opiate Screen,Urine Negative ng/ml (<300); Phencyclidine Screen,Urine Negative ng/ml (<25)
[2023-12-01 01:52] LABS: Amphetamine/Metha Screen,Urine Negative ng/ml (<1000)
[2023-12-01] MEDS: 0.9 % SODIUM CHLORIDE 50 ML VIAL IV (02:01)
[2023-12-01] MEDS: IOPAMIDOL-370 (76%);100ML BOTTLE 100 ML IV (02:01)
--- NOTE | 2023-12-01 02:07 | PC.NURSE ---
Contacted Myriam in radiology to contact [facility] and expedite the imaging for a possible stroke.
--- NOTE | 2023-12-01 02:26 | PC.NURSE ---
Contacted [facility] over potential transfer for a stroke, Dr. Koroma on the phone with Dr. Leyva.
--- NOTE | 2023-12-01 02:36 | PC.NURSE ---
Snellen test results: Both eyes: 20/50 R eye: unable to visualize any line L eye: 20/40
--- NOTE | 2023-12-01 02:52 | PC.NURSE ---
[facility] notified of transfer ALS to [facility].
--- NOTE | 2023-12-01 02:54 | PC.NURSE ---
report called to [facility] ED charge nurse
== END 2023-12-01 03:12 | disposition short-term general hospital (02) ==
PROVIDERS: Emergency Provider Emergency Medicine; PCP Family Medicine
DX: I63.9 Cerebral infarction, unspecified (principal); R41.82 Altered mental status, unspecified; R53.1 Weakness; E11.9 Type 2 diabetes mellitus without complications; I10 Essential (primary) hypertension; E78.5 Hyperlipidemia, unspecified; E03.9 Hypothyroidism, unspecified; Z79.84 Long term (current) use of oral hypoglycemic drugs; R74.02 Elevation of levels of lactic acid dehydrogenase [LDH]
CPT/HCPCS: 70450; 70496; 70498; 71045; 80053; 80307; 81001; 82009; 82803; 85025; 85610; 87086; 93005; 96361; 96374; 96375; 99291; J0131; Q9967